=== PATIENT | female | born 1935 | race African-American/Black ===

== ENCOUNTER 2020-01-31 19:00 | Emergency (ER) | payer OTHER ==
[~2020-01-31] VITALS: Ht 165.1 cm; Wt 61.7 kg
[2020-01-31] MEDS ORDERED: ARICEPT10 M1 PO (19:20)
[2020-01-31] MEDS ORDERED: NORVASC 2.5 MG2.5 M1 PO (19:27)
[2020-01-31] MEDS ORDERED: CATAPRES0.1 MG PO (19:27)
[2020-01-31] MEDS ORDERED: OMEPRAZOLE 20 M20 M1 PO (19:27)
[2020-01-31] MEDS ORDERED: CELEXA20 MG PO (19:28)
[2020-01-31 19:49] LABS: HEMATOCRIT 35.2 % (37.0-47.0); HEMOGLOBIN 11.7 gm/dL (12.0-15.0); MCH 30.9 pg (26.0-34.0); MCHC 33.2 g/dL (28.0-37.0); RBC 3.78 mil/uL (4.20-5.00); RDW 14.2 % (10.5-14.5); WBC 6.8 thou/uL (4.0-11.0)
[2020-01-31 20:12] LABS: CALCIUM 9.3 mg/dL (8.5-10.1); CREATININE 2.3 mg/dL (0.6-1.0); POTASSIUM 5.2 mmol/L (3.5-5.1)
[2020-01-31 21:10] LABS: URINE BILIRUBIN NEGATIVE (Negative); URINE BLOOD TRACE (Negative); URINE CLARITY CLEAR; URINE COLOR YELLOW; URINE GLUCOSE-RANDOM* NEGATIVE (Negative); URINE KETONES NEGATIVE (Negative); URINE NITRITE-REFLEX NEGATIVE (Negative); URINE PROTEIN (DIPSTICK) 2+ (Negative); URINE SPECIFIC GRAVITY 1.015 (1.005-1.035); URINE UROBILINOGEN 0.2 E.U./dl (0.2-1.0)
[2020-01-31 21:13] LABS: URINE LEUKOCYTES-REFLEX 1+ (Negative)
[2020-01-31 21:20] LABS: BACTERIA-REFLEX 1-9 Few /HPF (None Seen); SQUAMOUS 0-3 Few /LPF (0-3); URINE RBC 0-2 Rare /HPF (0-2); URINE WBC-REFLEX 6-15 Few /HPF (0-5)
[2020-01-31 21:21] LABS: CASTS None Seen /LPF (None Seen); CRYSTALS None Seen /LPF (None Seen); MUCUS 0-3 Light strn/LPF (None Seen)
[2020-01-31 22:23] VITALS: BP 162/89
--- NOTE | 2020-02-01 09:02 | EKG ---
[facility] [place] [address] ELECTROCARDIOGRAM REPORT Name: ARLEY CUEVAS Room #: DEP [facility]AMPUSCorie#: [id number] Admission: 01/31/20 Attend Phys: Discharge: 01/31/20 Date of : 33 Report #: [id number] THIS REPORT FOR: cc: Moni Muñoz MD, Pamela MD Lundgren,Raul Jones MD [facility] ~ THIS REPORT FOR: //name// [facility] ED Test Date: 2020-01-31 Test Time: 19:55:25 Pat Name: ARLEY CEUVAS Department: Room: Gender: F [employer]: KAVYA : 1935 Requested By: Zay Flores Order Number: [id number] MD: Raul Quiñonez Measurements Intervals [place] Rate: 68 P: 7 [place]: 176 QRS: -13 QRSD: 76 T: 54 QT: 555 QTc: 591 Interpretive Statements Sinus rhythm Borderline abnrm T, anterolateral leads Prolonged QT interval No previous ECG available for comparison Electronically Signed On 02-01-2020 9:02:35 CDT by Raul Quiñonez [email or web address] <ELECTRONICALLY SIGNED> By: Raul Quiñonez MD, [facility] 02/01/20901 54 54 Raul Quiñonez MD, [facility] /EPI
== END 2020-01-31 22:48 | disposition home or self-care (01) ==
LOC: ER 19:00
PROVIDERS: Nurse Practitioner
DX: S01.511A Laceration without foreign body of lip, initial encounter (principal); T14.8XXA Other injury of unspecified body region, initial encounter; K08.89 Other specified disorders of teeth and supporting structures; I10 Essential (primary) hypertension; Z79.899 Other long term (current) drug therapy; W07.XXXA Fall from chair, initial encounter; Y93.89 Activity, other specified; Y92.89 Other specified places as the place of occurrence of the external cause; Y99.8 Other external cause status